=== PATIENT | female | born 1990 | race Caucasian/White ===

== ENCOUNTER 2016-11-23 23:45 | Emergency (ER) | payer BC, OTHER ==
[2016-11-23 23:53] VITALS: RESP 16
--- NOTE | 2016-11-24 00:26 | EDPHY ---
HPI/HX/ROS/PE/MDM Narrative: Chief complaint: Chest pain and sore throat, pain with swallowing HPI: 26-year-old woman with a history of Celine-Danlos syndrome, pneumothorax once and pneumomediastinum x5 in the past. Patient is presenting with onset of 5/10 chest pain with some sore throat at 5 o'clock this afternoon. This feels similar to her prior episodes of pneumomediastinum. Has not had any short shortness of breath. No fevers or chills. No cough. Did have some vigorous laughing last night for a short time. Has not had any other trauma. No nausea or vomiting. Last pneumomediastinum was about 2 and half years ago. She did have spontaneous pneumothorax about a year ago. ROS: 10 point Review of Systems is negative except as noted in the HPI. Physical exam: Gen: Awake, Alert, No Distress HEENT: Nose: no rhinorrhea Eyes: PERRLA, EOMI Mouth: Moist mucosa Neck: Supple, no JVD Chest: nontender, lungs clear to auscultation Heart: S1, S2 normal, no murmur Abd: Soft, non-tender, no guarding Back: no CVA tenderness, no midline tenderness Ext: no edema, non-tender Skin: no rash Neuro: CN II-XII intact, Sensation grossly intact, Strength 5/5 in bilateral upper and lower extremities ED Course: CXR: negative. No findings suggestive of pneumothorax or pneumomediastinum per my interpretation. Course: Pt unchanged. Declining pain medications. She would like to go home. I have advised she follow-up with her encephalographer this week. She is asking if she can fly this thursday. I have advised that she not fly until cleared by her encephalographer. I have also given her a referral to a PCP. She will return immediately for increasing shortness of breath, fever, chest pain, cough or other concerns. General Time Seen by Provider: 11/24/16 00:11 Initial Vital Signs: Initial Vital Signs Temperature (C) 36.9 C 11/23/16 23:48 Heart Rate 86 11/23/16 23:48 Respiratory Rate 16 11/23/16 23:48 Blood Pressure 116/76 11/23/16 23:48 O2 Sat (%) 97 11/23/16 23:48 O2 Delivery Mode Room Air Allergies/Adverse Reactions: buckwheat [Buckwheat] Allergy (Verified 11/23/16 23:54) ciprofloxacin [From Cipro] Allergy (Verified 11/23/16 23:54) ciprofloxacin HCl [From Cipro] Allergy (Verified 11/23/16 23:54) mupirocin [From Bactroban] Allergy (Verified 11/23/16 23:54) mupirocin calcium [From Bactroban] Allergy (Verified 11/23/16 23:54) oxycodone HCl [From Percocet] Allergy (Verified 11/23/16 23:54) peanut Allergy (Verified 11/23/16 23:54) soy Allergy (Verified 11/23/16 23:54) tree nut [Tree Nut] Allergy (Verified 11/23/16 23:54) avacado Allergy (Uncoded 03/18/16 13:33) somers peppers Allergy (Uncoded 03/18/16 13:33) fruit Allergy (Uncoded 03/18/16 13:33) lettuce Allergy (Uncoded 03/18/16 13:33) mustard Allergy (Uncoded 03/18/16 13:33) rice Allergy (Uncoded 03/18/16 13:33) Home Medications: Medication Instructions Recorded Dextroamphetamine/Amphetamine 10 mg PO DAILY PRN 11/13/15 [Adderall Xr 10 mg Capsule] Docusate Sodium [Colace 100 MG (*)] 100 mg PO BID #20 cap 11/15/15 Ibuprofen [Motrin (*)] 600 mg PO QID #20 tab 11/15/15 EPINEPHRINE [EPIPEN] 0.3 mg IM ONCE #2 syr 03/18/16 EPINEPHRINE [EPIPEN] 0.3 mg IM ONCE #2 syr 09/10/16 Departure - Departure Disposition: Home, Routine, Self-Care Clinical Impression: Chest pain Condition: Good Instructions: Chest Pain (ED) Additional Instructions: Return immediately for increasing shortness of breath, fever, chest pain, cough or other concerns. Do not fly until cleared by your PCP or Process Control Operator. Referrals: NONE *PRIMARY CARE P,. [Primary Care Provider] - As per Instructions Marcia Carpio DO [Doctor of Osteopathy] - As per Instructions
[2016-11-24 02:27] VITALS: BP 103/70; PULSE 64; TEMP 97.9; O2SAT 96
--- NOTE | 2016-11-24 08:38 | DX ---
PA and Lateral Chest November 24, 2016 0045 hours Indication: Chest pain. Personal history of left pneumothorax. Findings: The lungs are well aerated and clear. No pneumothorax, consolidation, or effusion. Heart si ze normal. Impression: Normal. No pneumothorax or explanation for pain.
== END 2016-11-24 02:26 | disposition home or self-care (01) ==
DX: R07.9 Chest pain, unspecified (principal); Z91.010 Allergy to peanuts

== ENCOUNTER 2016-12-17 19:05 | Emergency (ER) | payer BC ==
--- NOTE | 2016-12-17 19:24 | EDPHY ---
H & P HPI/ROS: CHIEF COMPLAINT: Fever, diarrhea, nausea. HISTORY OF PRESENT ILLNESS: The patient is a 26-year-old female who presents with fever and nausea, since Eric night (48 hours). Her illness began as crampy abdominal pain and diarrhea. She felt better yesterday and had no diarrhea but was still nauseated. Today she noticed a fever when she took her temperature. She describes having pain in her legs but denies myalgia. She admits mild right ear pain. She denies sore throat, rhinorrhea, cough, urinary symptoms. She was afebrile on presentation to the emergency department. She did not get a flu shot this year. REVIEW OF SYSTEMS: A complete 10-point review of systems was performed and is negative except for those items mentioned in the HPI. Past Medical/Surgical History: Cerebellar JPA, Celine-Danlos syndrome, ADHD, migraines, pneumomediastinum, hip surgery, shoulder surgery, ankle surgery. Social History: Nonsmoker. Smoking Status: Never smoked Physical Exam: General Appearance: Alert, no distress Eyes: Pupils equal and round, no conjunctival pallor or injection ENT, Mouth: Mucous membranes moist Neck: Normal inspection Respiratory: Lungs are clear to auscultation Cardiovascular: Regular rate and rhythm Gastrointestinal: Mild diffuse tenderness. Abdomen is soft. Neurological: A&O, nonfocal, normal gait Skin: Warm and dry, no rash Extremities: Nontender, no pedal edema Psychiatric: Mood and affect normal Constitutional: Initial Vital Signs Temperature (C) 37.2 C 12/17/16 19:10 Heart Rate 103 H 12/17/16 19:10 Respiratory Rate 16 12/17/16 19:10 Blood Pressure 112/73 12/17/16 19:10 O2 Sat (%) 99 12/17/16 19:10 O2 Delivery Mode Room Air Allergies/Adverse Reactions: buckwheat [Buckwheat] Allergy (Verified 11/23/16 23:54) ciprofloxacin [From Cipro] Allergy (Verified 11/23/16 23:54) ciprofloxacin HCl [From Cipro] Allergy (Verified 11/23/16 23:54) mupirocin [From Bactroban] Allergy (Verified 11/23/16 23:54) mupirocin calcium [From Bactroban] Allergy (Verified 11/23/16 23:54) oxycodone HCl [From Percocet] Allergy (Verified 11/23/16 23:54) peanut Allergy (Verified 11/23/16 23:54) soy Allergy (Verified 11/23/16 23:54) tree nut [Tree Nut] Allergy (Verified 11/23/16 23:54) avacado Allergy (Uncoded 03/18/16 13:33) somers peppers Allergy (Uncoded 03/18/16 13:33) fruit Allergy (Uncoded 03/18/16 13:33) lettuce Allergy (Uncoded 03/18/16 13:33) mustard Allergy (Uncoded 03/18/16 13:33) rice Allergy (Uncoded 03/18/16 13:33) Home Medications: Medication Instructions Recorded EPINEPHRINE [EPIPEN] 0.3 mg IM ONCE #2 syr 09/10/16 Zofran 12/17/16 Medical Decision Making ED Course/Re-evaluation: Influenza swab sent. An IV was established. 1L IV saline administered for hydration along with 4mg IV Zofran for nausea. Flu swab returns negative. Dip urinalysis is negative for leukocytes. 2055: Reassessed patient. She is still nauseated. 10mg IV Reglan administered. Feels much better after Reglan, want to go home. Sx c/w viral syndrome. Abd remains soft, NT on d/c. Differential Diagnosis: includes though not limited to influenza, UTI, pneumonia, surgical abdomen, SBO. - Data Points Laboratory Results: Laboratory Results 12/17/16 21:08 Medications Given: Discontinued Medications Acetaminophen (Tylenol) 1,000 mg PO EDNOW ONE Stop: 12/17/16 20:34 Last Admin: 12/17/16 20:45 Dose: 1,000 mg Sodium Chloride (Ns) 1,000 mls @ 0 mls/hr IV ONCE ONE PRN Reason: Wide Open Stop: 12/17/16 19:31 Last Admin: 12/17/16 19:35 Dose: 1,000 mls Metoclopramide HCl (Reglan Injection) 10 mg IVP EDNOW ONE Stop: 12/17/16 20:56 Last Admin: 12/17/16 21:11 Dose: 10 mg Ondansetron HCl (Zofran) 4 mg IVP EDNOW ONE Stop: 12/17/16 19:32 Last Admin: 12/17/16 19:37 Dose: 4 mg Ondansetron HCl (Zofran) 4 mg IVP EDNOW ONE Stop: 12/17/16 20:34 Last Admin: 12/17/16 20:45 Dose: 4 mg Ondansetron HCl (Zofran Odt 4 Mg Prepack#2) 1 btl TAKEHOME EDNOW ONE Stop: 12/17/16 20:45 Last Admin: 12/17/16 21:11 Dose: 1 btl Promethazine HCl (Phenergan 25 Mg Prepack #4) 1 btl TAKEHOME EDNOW ONE Stop: 12/17/16 21:03 Last Admin: 12/17/16 21:12 Dose: 1 btl Departure - Departure Disposition: Home, Routine, Self-Care Clinical Impression: Viral syndrome Condition: Good Instructions: Viral Syndrome (ED), Promethazine (By mouth), Ondansetron (By mouth) Additional Instructions: Adult Pain & Fever Control: We recommend Acetaminophen (Tylenol) and Ibuprofen (Motrin,Advil) for pain and fever control. When fever is high or pain severe, both drugs can be used at the same time, but at different intervals. Please note the time differences. Your dose is: Acetaminophen 650mg every 4 to 6 hours Ibuprofen 600mg every 6-8 hours with food. Note: do not take Acetaminophen with Hydrocodone (Vicodin, Lortab) or Oycodone (Percocet). These medications also contain Acetaminophen. No more than 3000mg of Acetaminophen should be taken in 24 hours (for an adult). Drink plenty of fluids and be sure to get rest. Follow up with your primary care provider if symptoms are not improving in the next 3-4 days. If you need a primary care provider you were given the telephone number of Dr. Rodriguez, outpatient medicine. Return to the emergency department for serious worsening of condition. Phenergan 1 tablet every 6 hours as needed for nausea. Zofran 1 tablet every 6 hours as needed for nausea. Referrals: Akila Rodriguez MD [Medical Doctor] - As per Instructions Report Scribed for: Yennifer Romeo Report Scribed by: Archie Lemon Date of Report: 12/17/16 Time of Report: 19:22 Physician Review and Approval Statement: 12/17/16 19:22 Portions of this note were transcribed by a biomedical field service engineer. I personally performed a history, physical exam, medical decision making, and confirmed accuracy of information the transcribed note.
[2016-12-17] MEDS ORDERED: NS 1,000 ML IV ONE (19:30)
[2016-12-17] MEDS ORDERED: ONDANSETRON 4 MG/2 ML VIAL IVP ONE ×2 (19:31→20:33)
[2016-12-17] MEDS ORDERED: ACETAMINOPHEN 500 MG TAB PO ONE (20:33)
[2016-12-17] MEDS ORDERED: ONDANSETRON 4MG PREPACK#2 BTL TAKEHOME ONE (20:44)
[2016-12-17] MEDS ORDERED: METOCLOPRAMIDE 10 MG/2 ML VIAL IVP ONE (20:55)
[2016-12-17] MEDS ORDERED: PROMETHAZINE 25 MG PREPACK #4 BTL TAKEHOME ONE (21:02)
[2016-12-17 21:16] LABS: % IMMATURE GRANULYOCYTES 0.4 % (0.0-1.1); ABSOLUTE IMMATURE GRANULOCYTES 0.02 10^3/uL (0.00-0.10); ADD DIFF? NO; ADD MORPH? NO; ADD SCAN? NO; ATYPICAL LYMPHOCYTE FLAG 10 (0-99); FRAGMENT RBC FLAG 0 (0-99); HEMATOCRIT 33.9 % (38.0-47.0); HEMOGLOBIN 11.8 g/dL (12.6-16.3); LEFT SHIFT FLG 10 (0-99); LIPEMIA HEMOLYSIS FLAG 90 (0-99); MEAN CELL HEMOGLOBIN 29.9 pg (27.9-34.1); MEAN CELL HEMOGLOBIN CONCENTR. 34.8 g/dL (32.4-36.7); MEAN PLATELET VOLUME 12.3 fL (8.7-11.7); PLATELET CLUMPS FLAG 0 (0-99); PLATELET COUNT 107 10^3/uL (150-400); RED BLOOD CELL COUNT 3.94 10^6/uL (4.18-5.33); RED CELL DISTRIBUTION WIDTH 12.3 % (11.5-15.2)
[2016-12-17 21:46] VITALS: BP 105/53; PULSE 97; RESP 14; TEMP 100.2; O2SAT 96
== END 2016-12-17 21:49 | disposition home or self-care (01) ==
DX: B34.9 Viral infection, unspecified (principal); Z91.010 Allergy to peanuts
CPT/HCPCS: 96374; J2405; J2765

== ENCOUNTER → 2017-02-06 | Outpatient (CLI) | payer BC | LOC: FIMAGING 07:18 | PROVIDERS: ATTEND Internal Medicine Hematology & Oncology | DX: Z09 Encounter for follow-up examination after completed treatment for conditions other than malignant neoplasm (principal); Z86.2 Personal history of diseases of the blood and blood-forming organs and certain disorders involving the immune mechanism ==

== ENCOUNTER → 2017-04-23 | Outpatient (CLI) | payer BC ==
[~2017-04-23] MED LIST: GADOBUTROL 10 ML VIAL IVP ONE
== END ==
LOC: FIMAGING 19:34
PROVIDERS: ATTEND Family Medicine Sports Medicine
DX: S06.0X0D Concussion without loss of consciousness, subsequent encounter (principal); Z90.89 Acquired absence of other organs
CPT/HCPCS: A9585

== ENCOUNTER → 2017-05-04 | Outpatient (CLI) | payer BC ==
[~2017-05-04] MED LIST changes: -GADOBUTROL 10 ML VIAL IVP ONE; +IOPAMIDOL (ISOVUE-300) 100 ML BTL ONE
== END ==
LOC: FIMAGING 08:18
PROVIDERS: ATTEND Family Medicine
DX: R10.814 Left lower quadrant abdominal tenderness (principal)
CPT/HCPCS: 74177-PO; Q9967

== ENCOUNTER 2017-10-09 20:11 | Emergency (ER) | payer BC ==
[2017-10-09 20:30] VITALS: RESP 18; TEMP 98.4
--- NOTE | 2017-10-09 20:38 | EDPHY ---
H & P Stated Complaint: rlq pain nausea Source: Patient Exam Limitations: No limitations - Personal History LMP (Females 10-55): 8-14 Days Ago Current Tetanus/Diphtheria Vaccine: Yes Current Tetanus Diphtheria and Acellular Pertussis (TDAP): Yes Tetanus Vaccine Date: 2015 - Medical/Surgical History Hx Asthma: Yes Hx Chronic Respiratory Disease: No Hx Diabetes: No Hx Cardiac Disease: No Hx Renal Disease: No Hx Cirrhosis: No Hx Alcoholism: No Hx HIV/AIDS: No Hx Splenectomy or Spleen Trauma: No Other PMH: pmh- cerebllar JPA, celine-danlos syndrome (conn. tissue d/o), ADHD, allergies, migraines, postural orthostatic tachycardia, post concussion,. psh- brain tumor excised 2009, pnuemomedistienum x5, R hip surg, L shoulder surg x 3 , R ankle surg - Social History Smoking Status: Never smoked Time Seen by Provider: 10/09/17 20:37 HPI/ROS: HPI: This is a 27-year-old female presents with Chief Complaint: rlq pain nausea Location: Right lower quadrant Quality: Pain Duration: 3-5 hours Signs and Symptoms: no fever, + nausea, no vomiting, no hematemesis, no blood in stool, no abdominal bloating, no diarrhea, no back pain, no urinary symptoms , no indigestion, no chest pain, no shortness of breath Timing: Worsening Severity: Moderate Context: Patient was walking back from class this afternoon and developed the sudden onset of moderate right lower quadrant pain that was constant in nature and nonradiating. She then went to see her neurologist for postconcussion syndrome. During the appointment she noted to be nauseous. Since this afternoon the pain in the right lower quadrant has continued to worsen and now is 8/10. She denies any urinary symptoms, fever, vomiting, diarrhea. She has not had any recent antibiotic use. LMP 1-2 weeks ago and no history of ovarian cysts, fibroids, dyspareunia. She had a bowel movement yesterday that was normal per her. At 5:00 p.m. she ate a small snack size container of bagel chips, salami and cheese without difficulty. Seen by OBGYN last week. Reports last sexual intercourse was 1 year ago. Modifying Factors: None Comment: ROS: see HPI Constitutional: No fever, no chills, no weight loss Eyes: No blurred vision Respiratory: No shortness of breath, no cough Cardiovascular: No chest pain, no palpitations Gastrointestinal: + nausea, no vomiting, no diarrhea, no hematemesis, no blood in stool Genitourinary: No dysuria, no blood in urine Extremities: No myalgias, no edema Neurologic: No weakness, no numbness Skin: No rashes, no petechiae Hematologic: No bruising, no bleeding MEDICAL/SURGICAL/SOCIAL HISTORY: Medical/Surgical history: pmh- cerebellar JPA, Celine-Danlos syndrome (conn. tissue d/o), ADHD, allergies, migraines, postural orthostatic tachycardia, post concussion, psh- brain tumor excised 2010, pneumomediastinum x5, R hip surg, L shoulder surg x 3, R ankle surg Social history: College student CONSTITUTIONAL: Well-appearing adult white female, awake and alert, no obvious distress HEENT: Atraumatic and normocephalic, PERRL, EOMI. Tympanic membranes clear. Oropharynx clear, no exudate and moist pink mucosa. Airway patent. No lymphadenopathy. No meningismus. Cardiovascular: Normal S1/S2, regular rate, regular rhythm, without murmur rub or gallop. PULMONARY/CHEST: Symmetrical and nontender. Clear to auscultation bilaterally. Good air movement. No accessory muscle usage. ABDOMEN: Soft, nondistended, pinpoint RLQ moderate tenderness, negative Rovsing sign, negative psoas sign, negative obturator sign, no rebound, no guarding, no peritoneal signs, no masses or organomegaly. No CVAT. PELVIC: normal external genitalia, normal cervix, cervical os was closed, no cervical motion tenderness, no adnexal mass, no discharge, no bleeding. The exam was performed with a senior infrastructure engineer. EXTREMITIES: 2/2 pulses, strength 5/5, no deformities, no clubbing, no cyanosis or edema. NEUROLOGICAL: no focal neuro deficits. GCS 15. SKIN: Warm and dry, no erythema. no rash. Good capillary refill. (Paulino,Seema) Constitutional: Initial Vital Signs Temperature (C) 36.9 C 10/09/17 20:25 Heart Rate 94 10/09/17 20:25 Respiratory Rate 18 10/09/17 20:25 Blood Pressure 111/74 10/09/17 20:25 O2 Sat (%) 94 10/09/17 20:25 O2 Delivery Mode Room Air Allergies/Adverse Reactions: buckwheat [Buckwheat] Allergy (Verified 11/23/16 23:54) ciprofloxacin [From Cipro] Allergy (Verified 11/23/16 23:54) ciprofloxacin HCl [From Cipro] Allergy (Verified 11/23/16 23:54) mupirocin [From Bactroban] Allergy (Verified 11/23/16 23:54) mupirocin calcium [From Bactroban] Allergy (Verified 11/23/16 23:54) oxycodone HCl [From Percocet] Allergy (Verified 11/23/16 23:54) peanut Allergy (Verified 11/23/16 23:54) soy Allergy (Verified 11/23/16 23:54) tree nut [Tree Nut] Allergy (Verified 11/23/16 23:54) avacado Allergy (Uncoded 03/18/16 13:33) somers peppers Allergy (Uncoded 03/18/16 13:33) fruit Allergy (Uncoded 03/18/16 13:33) lettuce Allergy (Uncoded 03/18/16 13:33) mustard Allergy (Uncoded 03/18/16 13:33) rice Allergy (Uncoded 03/18/16 13:33) Home Medications: Medication Instructions Recorded EPINEPHRINE [EPIPEN] 0.3 mg IM ONCE #2 syr 09/10/16 Zofran 12/17/16 Dextroamphetamine/Amphetamine 10/09/17 [Adderall Xr 10 mg Capsule] Medical Decision Making ED Course/Re-evaluation: Labs, abdominal ultrasound, IV fluids, urinalysis, IV medications ordered Afebrile and no systemic signs. 2151: Labs reviewed and grossly unremarkable including no lactic acidosis. 2210: Called by Radiology who advised ultrasound shows equivocal appendicitis is measuring between 5-7 mm, containing small appendicoliths within the lumen. Patient is reluctant to obtain CT scan due to multiple imaging that she has had in the past. Discussed case with attending who went to examine patient. ED decision to consult surgery Dr. Cody. CT A/P scan ordered and shows no acute appendicitis. (Seema Bob) I have evaluated and participated in the management of this patient. My co- signature indicates that I have reviewed this chart and that I agree with the findings and the plan of care as documented. My personal history and physical findings include: This is a healthy 27-year-old female who had the onset of right lower quadrant pain while walking earlier today. The pain has persisted and worsened. It is a deep aching sensation. She has not had fever or vomiting. She denies diarrhea or constipation. No urinary symptoms. Last normal menses was less than 2 weeks ago. She states that she is not sexually active. She has not had vaginal discharge. On examination her abdomen is soft with moderate tenderness in the right lower quadrant. Lungs are clear. Heart is regular. I reviewed her laboratory studies and radiographic studies. (Shazia Tomas) Differential Diagnosis: Abdominal pain including but not limited to appendicitis, cholecystitis, gastritis and urinary tract infection. (Seema Bob) - Data Points Laboratory Results: Laboratory Results 10/09/17 20:40 10/09/17 20:40 Medications Given: Discontinued Medications Sodium Chloride (Ns) 1,000 mls @ 0 mls/hr IV EDNOW ONE; Wide Open PRN Reason: Protocol Stop: 10/09/17 20:45 Last Admin: 10/09/17 20:49 Dose: 1,000 mls Sodium Chloride (Ns) 1,000 mls @ 200 mls/hr IV CONT JAMSHID Stop: 04/07/18 23:29 Last Admin: 10/09/17 23:17 Dose: 1,000 mls Morphine Sulfate (Morphine) 4 mg IVP EDNOW ONE Stop: 10/09/17 20:51 Last Admin: 10/09/17 20:58 Dose: 4 mg Departure - Departure Disposition: Home, Routine, Self-Care Clinical Impression: Right lower quadrant abdominal pain Condition: Good Instructions: Muscle Strain (ED) Additional Instructions: Please return to the emergency room immediately if you have a fever, increased abdominal pain, nausea, vomiting. Referrals: Magdalena Acosta MD [Primary Care Provider] - As per Instructions
[2017-10-09] MEDS ORDERED: NS 1,000 ML IV ONE (20:44)
[2017-10-09 20:57] LABS: % IMMATURE GRANULYOCYTES 0.3 % (0.0-1.1); ABSOLUTE IMMATURE GRANULOCYTES 0.02 10^3/uL (0.00-0.10); ADD DIFF? NO; ADD MORPH? NO; ADD SCAN? NO; ATYPICAL LYMPHOCYTE FLAG 70 (0-99); FRAGMENT RBC FLAG 0 (0-99); HEMATOCRIT 35.7 % (38.0-47.0); HEMOGLOBIN 12.1 g/dL (12.6-16.3); LEFT SHIFT FLG 0 (0-99); LIPEMIA HEMOLYSIS FLAG 90 (0-99); MEAN CELL HEMOGLOBIN 28.8 pg (27.9-34.1); MEAN CELL HEMOGLOBIN CONCENTR. 33.9 g/dL (32.4-36.7); MEAN PLATELET VOLUME 12.1 fL (8.7-11.7); PLATELET CLUMPS FLAG 0 (0-99); PLATELET COUNT 188 10^3/uL (150-400); RED CELL DISTRIBUTION WIDTH 13.3 % (11.5-15.2)
[2017-10-09 21:10] LABS: ALANINE AMINOTRANSFERASE 31 IU/L (9-52); ALBUMIN 4.6 g/dL (3.5-5.0); ALKALINE PHOSPHATASE 48 IU/L (38-126); ANION GAP 11 mEq/L (8-16); ASPARTATE AMINOTRANSFERASE 22 IU/L (14-46); BILIRUBIN,TOTAL 0.5 mg/dL (0.1-1.4); BILIRUBIN-CONJUGATED 0.1 mg/dL (0.0-0.5); BILIRUBIN-UNCONJUGATED 0.4 mg/dL (0.0-1.1); CALCIUM 9.5 mg/dL (8.5-10.4); CARBON DIOXIDE 20 mEq/l (22-31); CHLORIDE 108 mEq/L (97-110); CREATININE 0.7 mg/dL (0.6-1.0); GLOMERULAR FILTRATION RATE > 60; GLUCOSE 88 mg/dL (70-100); POTASSIUM 4.1 mEq/L (3.5-5.2); SODIUM 139 mEq/L (134-144); TOTAL PROTEIN 7.2 g/dL (6.3-8.2)
[2017-10-09 22:20] LABS: COLOR YELLOW; LEUKOCYTE ESTERASE,URINE NEGATIVE (NEGATIVE); NITRITE,URINE NEGATIVE (NEGATIVE)
[2017-10-09] MEDS ORDERED: IOPAMIDOL (ISOVUE-300) 100 ML BTL ONE (23:15)
[2017-10-09] MEDS ORDERED: NS 1,000 ML IV SCH ×2 (23:15→23:30)
--- NOTE | 2017-10-10 00:08 | PDCONSULT ---
[facility] Note: #[id number] Surgical consult dictated S MD Escobar, FACS
--- NOTE | 2017-10-10 00:45 | GCON ---
[f rep st] CONSULTATION DATE OF CONSULTATION: 10/09/2017 CHIEF COMPLAINT: Abdominal pain. HISTORY OF PRESENT ILLNESS: The patient is a 27-year-old female who developed nausea at about noon today. Subsequently, she developed right lower quadrant pain and pain continued to worsen throughout the day and afternoon. She continued to experience nausea. She came to the emergency room where she was seen by Seema EGAN, who obtained an abdominal ultrasound and surgical consultation was requested. The patient reports the pain to be located in the right lower quadrant without radiation and has remained there throughout the day. She has had no emesis. No diarrhea or constipation. Last menstrual period was 1 week prior. PAST MEDICAL HISTORY: Significant for Celine-Danlos syndrome, prior spontaneous pneumothorax requiring chest tube decompression, multiple presentations with pneumomediastinum. She has had multiple hip and shoulder surgeries as well as right ankle surgery and she had a cerebellar tumor excised in 2009. She has history of ADHD, postural orthostatic tachycardia, migraines, and approximately 2 months ago was diagnosed with mononucleosis. History of concussion. Three years ago patient had a ruptured ovarian cyst diagnosed by ultrasound. CURRENT MEDICATIONS: Include Adderall XR 10 mg q. day. She uses Zofran as needed for nausea orally and carries an EpiPen. ALLERGIES: Buckwheat, peanuts, soy, tree nuts, avocado, somers pepper, fruit, lettuce, mustard, rice, oxycodone, mupirocin, ciprofloxacin. SOCIAL HISTORY: She is a nonsmoker. Denies significant alcohol use. Rarely smokes pot. Patient is a student at studying chemistry. She is originally from the [place], [place] area. FAMILY HISTORY: No other family members have tested positive though she has a cousin who may have Celine-Danlos syndrome and is in the process of evaluation. REVIEW OF SYSTEMS: The patient denies any chest pain, shortness of breath, current headache, visual disturbances. She has had no recent trauma to the torso. The patient has never been . Has not been sexually active for over a year. PHYSICAL EXAMINATION: GENERAL: Reveals a slender young woman who appears in no acute distress. VITAL SIGNS: Blood pressure is 111/74, heart rate is 94, respiratory rate is 18, O2 saturation is 94, temperature is 36.9. HEENT: There is no scleral icterus. No cervical adenopathy. Trachea is midline. There is no jugular venous distention. LUNGS: Clear to auscultation. HEART: Regular in rate and rhythm without murmurs. There is no Bandar's crunch. ABDOMEN: Scaphoid, soft with normoactive bowel sounds. There is no focal tenderness to percussion. There is mild tenderness to deep palpation in the right lower quadrant with a positive squish sign. There is negative Rovsing's sign. There is no palpable mass or hernia. PELVIC: Not repeated. EXTREMITIES : Warm and dry without edema. RECTAL: Not performed. LABORATORY STUDIES: WBC is 6.0, hemoglobin 12, hematocrit 35.7, platelets are 188,000. Sodium 139, potassium 4.1, chloride 108, BUN 14, creatinine 0.7, glucose is 88. Liver function tests are entirely within normal limits. Beta hCG is negative. The patient's ultrasound was reviewed and showed a possible noncompressible structure in the right lower quadrant that was felt to contain an appendicolith. This is an oblong-shaped structure without shadowing associated with the appendicolith and did not appear typical for an inflamed appendix. Subsequent CT of the abdomen with IV contrast showed a 6 mm appendix without appendicolith and without periappendiceal fluid or fat stranding in the mesentery. There was no fluid in the pelvis either. IMPRESSION: Abdominal pain of unclear etiology/unlikely due to appendicitis RECOMMENDATIONS: Recommended a trial of diet. The patient is comfortable returning home. Will return should her symptoms worsen and/or if she starts to develop vomiting and is unable to remain hydrated at home, would recommend admission for further workup and evaluation and intravenous hydration. /[id number]/MODL MTDD
[2017-10-10 01:02] VITALS: BP 114/54; PULSE 80; O2SAT 98
== END 2017-10-10 00:59 | disposition home or self-care (01) ==
DX: R10.31 Right lower quadrant pain (principal); J45.909 Unspecified asthma, uncomplicated; E86.9 Volume depletion, unspecified; Z91.010 Allergy to peanuts
CPT/HCPCS: 96374; Q9967

== ENCOUNTER → 2017-11-27 | Outpatient (CLI) | payer BC ==
--- NOTE | 2017-11-27 22:00 | CPEEG ---
[f rep st] ELECTROENCEPHALOGRAM DATE OF STUDY: 11/27/2017 DATE OF STUDY: 11/27/2017 INTERPRETATION: Normal EEG during wakefulness and sleep. There were no potentially epileptogenic ab normalities present during the recording. REPORT: This EEG contains 10 Hz alpha activity to the posterior head regions. The background activi ty was normal and symmetric. There was no abnormal activation at rest, during photic stimulation or hyperventilation. The patient became drowsy and fell asleep during the study. There was no abnormal activation during drowsiness, sleep, or during times of arousal. /[id number]/MODL
== END ==
LOC: FCPNEURO 07:36
PROVIDERS: ATTEND Psychiatry & Neurology Neurology
DX: R40.4 Transient alteration of awareness (principal)

== ENCOUNTER → 2018-01-28 | Outpatient (CLI) | payer BC ==
[~2018-01-28] MED LIST changes: +GADOBUTROL 10 ML VIAL IVP ONE; -IOPAMIDOL (ISOVUE-300) 100 ML BTL ONE
== END ==
LOC: FIMAGING 06:56
DX: D16.21 Benign neoplasm of long bones of right lower limb (principal); M25.452 Effusion, left hip
CPT/HCPCS: A9585

== ENCOUNTER → 2018-01-29 | Outpatient (CLI) | payer BC | LOC: FIMAGING 16:03 | DX: M25.551 Pain in right hip (principal) ==

== ENCOUNTER 2018-03-10 22:11 | Emergency (ER) | payer BC, MEDICAID ==
--- NOTE | 2018-03-10 22:19 | EDPHY ---
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 Denies any trouble breathing, denies trouble swallowing. States that she became concerned about this and decided come the emergency room she did not administer any home medications she does carry an epinephrine pen for anaphylaxis but did not use it. She arrives to the emergency room hemodynamically stable no acute distress she has no rash. She has no stridor no drooling no trouble breathing and appears otherwise well. 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 [employer] student. Family History: Noncontributory ROS REVIEW OF SYSTEMS: A comprehensive 10 point review of systems is otherwise negative aside from elements mentioned in the history of present illness. Exam Constitutional appears well nontoxic no acute distress vital signs stable triage nursing summary reviewed, vital signs reviewed, awake/alert. Eyes normal conjunctivae and sclera, EOMI, PERRLA. HENT oropharynx uvula midline, no soft palate or hard palate swelling, tongue appears to be normal in size to me, no sublingual swelling, no stridor, no drooling normal inspection, atraumatic, moist mucus membranes, no epistaxis, neck supple/ no meningismus, no raccoon eyes. Respiratory clear to auscultation bilaterally, normal breath sounds, no respiratory distress, no wheezing. Cardiovascular rate normal, regular rhythm, no murmur, no edema, distal pulses normal. Gastrointestinal soft, non-tender, no rebound, no guarding, normal bowel sounds, no distension, no pulsatile mass. Genitourinary no CVA tenderness. Musculoskeletal no midline vertebral tenderness, full range of motion, no calf swelling, no tenderness of extremities, no meningismus, good pulses, neurovascularly intact. Skin pink, warm, & dry, no rash, skin atraumatic. Neurologic awake, alert and oriented x 3, AAOx3, moves all 4 extremities equally, motor intact, sensory intact, CN II-XII intact, normal cerebellar, normal vision, normal speech. Psychiatric normal mood/affect. Heme/Lymph/Immune no lymphadenopathy. Differential Diagnosis: Includes but is not limited to in a particular order allergic reaction, severe allergic reaction, anaphylaxis, angioedema Medical Decision Making: Plan for this patient IV establishment blood draw, IV Solu-Medrol, IV Pepcid, IV Benadryl. I do not feel the patient needs epinephrine at this time. Will continue to monitor closely. Prolonged period of observation in the emergency room. If she progresses will give epinephrine. Re-evaluation: 2334: Patient re-evaluated this time resting comfortably. No further progression of reaction. Tongue and oropharynx remained stable. 0155AM: Patient re-evaluated this time she has been here for 4 hr and has not had any progression of allergic reaction. Patient resting comfortably. I did reexamine her there is no further swelling of her airway. She feels comfortable going home. Prescription provided for prednisone, Benadryl, Pepcid for the next 3 days. She should follow up with her green feed attendant. Additionally she understands return if she has any further progression of symptoms includes trouble swallowing, trouble breathing, airway problems or worsening swelling or perceived swelling. She understands and is comfortable this plan. Source: Patient - Personal History LMP (Females 10-55): 15-21 Days Ago Current Tetanus/Diphtheria Vaccine: Yes Tetanus Vaccine Date: 2015 - Medical/Surgical History Hx Asthma: Yes Hx Chronic Respiratory Disease: No Hx Diabetes: No Hx Cardiac Disease: No Hx Renal Disease: No Hx Cirrhosis: No Hx Alcoholism: No Hx HIV/AIDS: No Hx Splenectomy or Spleen Trauma: No Other PMH: pmh- cerebllar JPA, lina-danlos syndrome (conn. tissue d/o), ADHD, allergies, migraines, postural orthostatic tachycardia, post concussion,. psh- brain tumor excised 2009, pnuemomedistienum x5, R hip surg, L shoulder surg x 3 , R ankle surg. ?HEREDITARY ANGIOEDEMA, C1 INHIBITOR DEFICIENCY - Social History Smoking Status: Never smoked Constitutional: Initial Vital Signs Heart Rate 88 03/10/18 22:13 Respiratory Rate 18 03/10/18 22:13 Blood Pressure 123/82 H 03/10/18 22:13 O2 Sat (%) 99 03/10/18 22:13 O2 Delivery Mode Room Air Allergies/Adverse Reactions: buckwheat [Buckwheat] Allergy (Verified 11/23/16 23:54) ciprofloxacin [From Cipro] Allergy (Verified 11/23/16 23:54) ciprofloxacin HCl [From Cipro] Allergy (Verified 11/23/16 23:54) mupirocin [From Bactroban] Allergy (Verified 11/23/16 23:54) mupirocin calcium [From Bactroban] Allergy (Verified 11/23/16 23:54) oxycodone HCl [From Percocet] Allergy (Verified 11/23/16 23:54) peanut Allergy (Verified 11/23/16 23:54) soy Allergy (Verified 11/23/16 23:54) tree nut [Tree Nut] Allergy (Verified 11/23/16 23:54) avacado Allergy (Uncoded 03/18/16 13:33) somers peppers Allergy (Uncoded 03/18/16 13:33) fruit Allergy (Uncoded 03/18/16 13:33) lettuce Allergy (Uncoded 03/18/16 13:33) mustard Allergy (Uncoded 03/18/16 13:33) rice Allergy (Uncoded 03/18/16 13:33) Home Medications: Medication Instructions Recorded EPINEPHRINE [EPIPEN] 0.3 mg IM ONCE #2 syr 09/10/16 Zofran 12/17/16 Dextroamphetamine/Amphetamine 10/09/17 [Adderall Xr 10 mg Capsule] Zyrtec 03/10/18 Famotidine [Pepcid 20 MG (*)] 20 mg PO BID #6 tab 03/11/18 diphenhydrAMINE [Benadryl 25 MG 25 mg PO BID #6 tab 03/11/18 (*)] predniSONE 60 mg PO DAILY #9 tab 03/11/18 Medical Decision Making - Data Points Laboratory Results: Laboratory Results 03/10/18 22:25 03/10/18 22:25 03/10/18 03/10/18 22:25 22:25 WBC 5.73 10^3/uL 10^3/uL (3.80-9.50) RBC 4.77 10^6/uL 10^6/uL (4.18-5.33) Hgb 14.0 g/dL g/dL (12.6-16.3) Hct 41.9 % % (38.0-47.0) MCV 87.8 fL fL (81.5-99.8) MCH 29.4 pg pg (27.9-34.1) MCHC 33.4 g/dL g/dL (32.4-36.7) RDW 14.2 % % (11.5-15.2) Plt Count 140 10^3/uL L 10^3/uL (150-400) MPV 12.6 fL H fL (8.7-11.7) Neut % (Auto) 51.0 % % (39.3-74.2) Lymph % (Auto) 39.4 % % (15.0-45.0) [place] % (Auto) 7.2 % % (4.5-13.0) Eos % (Auto) 1.7 % % (0.6-7.6) Baso % (Auto) 0.5 % % (0.3-1.7) Nucleat RBC Rel Count 0.0 % % (0.0-0.2) Absolute Neuts (auto) 2.92 10^3/uL 10^3/uL (1.70-6.50) Absolute Lymphs (auto) 2.26 10^3/uL 10^3/uL (1.00-3.00) Absolute Monos (auto) 0.41 10^3/uL 10^3/uL (0.30-0.80) Absolute Eos (auto) 0.10 10^3/uL 10^3/uL (0.03-0.40) Absolute Basos (auto) 0.03 10^3/uL 10^3/uL (0.02-0.10) Absolute Nucleated RBC 0.00 10^3/uL 10^3/uL (0-0.01) Immature Gran % 0.2 % % (0.0-1.1) Immature Gran # 0.01 10^3/uL 10^3/uL (0.00-0.10) Sodium 140 mEq/L mEq/L (135-145) Potassium 3.9 mEq/L mEq/L (3.5-5.2) Chloride 105 mEq/L mEq/L (97-110) Carbon Dioxide 23 mEq/l mEq/l (22-31) Anion Gap 12 mEq/L mEq/L (8-16) BUN 17 mg/dL mg/dL (7-23) Creatinine 0.7 mg/dL mg/dL (0.6-1.0) Estimated GFR > 60 Glucose 93 mg/dL mg/dL (70-100) Calcium 9.7 mg/dL mg/dL (8.5-10.4) Medications Given: Discontinued Medications Diphenhydramine HCl (Benadryl Injection) 50 mg IVP EDNOW ONE Stop: 03/10/18 22:27 Last Admin: 03/10/18 22:35 Dose: 50 mg Famotidine (Pepcid) 20 mg IVP EDNOW ONE Stop: 03/10/18 22:27 Last Admin: 03/10/18 22:35 Dose: 20 mg Sodium Chloride (Ns) 1,000 mls @ 0 mls/hr IV EDNOW ONE; Wide Open PRN Reason: Protocol Stop: 03/10/18 22:27 Last Admin: 03/10/18 22:35 Dose: 1,000 mls Methylprednisolone Sodium Succinate (Solu-Medrol) 125 mg IVP EDNOW ONE Stop: 03/10/18 22:27 Last Admin: 03/10/18 22:35 Dose: 125 mg Departure - Departure Disposition: Home, Routine, Self-Care Clinical Impression: Allergic reaction Qualifiers: Encounter type: initial encounter Qualified Code(s): T78.40XA - Allergy, unspecified, initial encounter Instructions: Anaphylaxis (ED) Additional Instructions: 1. Return immediately to the emergency room if you have worsening swelling trouble breathing or perceive the reaction is getting worse. 2. Follow up with her green feed attendant 3. Prednisone, Benadryl, Pepcid for the next 3 days. Return if worse. Referrals: Magdalena Acosta MD [Primary Care Provider] - As per Instructions Prescriptions: diphenhydrAMINE [Benadryl 25 MG (*)] 25 mg PO BID #6 tab Famotidine [Pepcid 20 MG (*)] 20 mg PO BID #6 tab predniSONE 60 mg PO DAILY #9 tab
[2018-03-10] MEDS ORDERED: methylPREDNISolone SOD SUCC 125 MG/2 ML VIAL IVP ONE (22:26)
[2018-03-10] MEDS ORDERED: FAMOTIDINE 20 MG/2 ML SDV IVP ONE (22:26)
[2018-03-10] MEDS ORDERED: NS 1,000 ML IV ONE (22:26)
[2018-03-10 22:34] LABS: PLATELET COUNT 140 10^3/uL (150-400)
[2018-03-11 01:48] VITALS: BP 102/54
== END 2018-03-11 02:12 | disposition home or self-care (01) ==
DX: T78.40XA Allergy, unspecified, initial encounter (principal); E86.9 Volume depletion, unspecified; Z91.010 Allergy to peanuts
CPT/HCPCS: 96374; J1200; J2930

== ENCOUNTER → 2018-09-16 | Outpatient (CLI) | payer MEDICAID | LOC: BMCIMAGING 10:04 | PROVIDERS: ATTEND Family Medicine Sports Medicine | DX: Z13.820 Encounter for screening for osteoporosis (principal); F50.9 Eating disorder, unspecified; Z87.312 Personal history of (healed) stress fracture ==

== ENCOUNTER 2019-04-17 20:26 | Emergency (ER) | payer MEDICAID ==
[2019-04-17] MEDS ORDERED: NS 1,000 ML IV ONE (20:44)
[2019-04-17] MEDS ORDERED: PROMETHAZINE HCL 25 MG/ML INJ IVP ONE (20:44)
[2019-04-17] MEDS ORDERED: LIDOCAINE 2% VISCOUS 15 ML UDCUP PO ONE (20:44)
[2019-04-17] MEDS ORDERED: MAG HYDROX/AL HYDROX/SIMETH 30 ML UDCUP PO ONE (20:44)
[2019-04-17] MEDS ORDERED: HYOSCYAMINE SULFATE 0.125 MG TAB PO ONE (20:44)
--- NOTE | 2019-04-17 20:46 | EDPHY ---
H & P Stated Complaint: RUQ pain x3 days, worse with food, nausea Time Seen by Provider: 04/17/19 20:44 HPI/ROS: HPI: This is a 29-year-old female who presents with Chief Complaint: RUQ pain x3 days, worse with food, nausea Location: Right upper quadrant Quality: Pain Duration: 3 days Signs and Symptoms: no fever,+ nausea, no vomiting, no hematemesis, no blood in stool, no abdominal bloating, no diarrhea, no back pain, no urinary symptoms, no vaginal bleeding/discharge, no indigestion, no chest pain, no shortness of breath Timing: Worse with food Severity: Moderate Context: Patient is a student at [employer] presents with complaints of right upper quadrant pain x3 days that is worse with food and accompanied by nausea. Patient reports that she has multiple food allergies. No prior history of GERD or gastritis. Does not regularly use NSAIDs and does not drink alcohol regularly as well. Seen by [facility]ology of the [facility] as she was losing weight approximately 2 weeks ago and had an EGD performed that was essentially unremarkable per the patient. She has not noted any early satiety, abdominal bloating, fever, diarrhea. No recent foreign travel, recent antibiotic use, concern for food borne illness. Denies any urinary symptoms and politely declines urinalysis. Modifying Factors: None Comment: ROS: A comprehensive 10 system review of systems is otherwise negative aside from elements mentioned in the history of present illness. MEDICAL/SURGICAL/SOCIAL HISTORY: Medical history: cerebellar JPA, lina-danlos syndrome (conn. tissue d/o), ADHD, allergies, migraines, postural orthostatic tachycardia, post concussion, ? HEREDITARY ANGIOEDEMA, C1 INHIBITOR DEFICIENCY. LMP 1-2 weeks ago. Surgical history: brain tumor excised 2010, pneumomediastinum x5, R hip surg, L shoulder surg x 3, R ankle surg Social history: Never smoked. Family history noncontributory. Student at [employer]. CONSTITUTIONAL: Extremely well-appearing polite adult white female, awake and alert, no obvious distress HEENT: Atraumatic and normocephalic, PERRL, EOMI. Nares patent; no rhinorrhea; no nasal mucosal edema. Tympanic membranes clear. Oropharynx clear, no exudate and moist pink mucosa. Airway patent. No lymphadenopathy. No meningismus. Cardiovascular: Normal S1/S2, regular rate, regular rhythm, without murmur rub or gallop. PULMONARY/CHEST: Symmetrical and nontender. Clear to auscultation bilaterally. Good air movement. No accessory muscle usage. ABDOMEN: Soft, nondistended, mild right upper quadrant tenderness to deep palpation, no rebound, no guarding, no peritoneal signs, no masses or organomegaly. No CVAT. EXTREMITIES: 2/2 pulses, strength 5/5, no deformities, no clubbing, no cyanosis or edema. NEUROLOGICAL: no focal neuro deficits. GCS 15. SKIN: Warm and dry, no erythema. no rash. Good capillary refill. Source: Patient Exam Limitations: No limitations ( ) - Personal History LMP (Females 10-55): 8-14 Days Ago Current Tetanus Diphtheria and Acellular Pertussis (TDAP): Yes Tetanus Vaccine Date: 2015 - Medical/Surgical History Hx Asthma: Yes Hx Chronic Respiratory Disease: No Hx Diabetes: No Hx Cardiac Disease: No Hx Renal Disease: No Hx Cirrhosis: No Hx Alcoholism: No Hx HIV/AIDS: No Hx Splenectomy or Spleen Trauma: No Other PMH: pmh- cerebllar JPA, lina-danlos syndrome (conn. tissue d/o), ADHD, allergies, migraines, postural orthostatic tachycardia, post concussion,. psh- brain tumor excised 2009, pnuemomedistienum x5, R hip surg, L shoulder surg x 3 , R ankle surg. ?HEREDITARY ANGIOEDEMA, C1 INHIBITOR DEFICIENCY - Social History Smoking Status: Never smoked Constitutional: Initial Vital Signs Heart Rate 86 04/17/19 20:28 Respiratory Rate 16 04/17/19 20:28 Blood Pressure 120/78 04/17/19 20:28 O2 Sat (%) 97 04/17/19 20:28 O2 Delivery Mode Room Air Allergies/Adverse Reactions: ciprofloxacin [From Cipro] Allergy (Verified 04/17/19 20:29) ciprofloxacin HCl [From Cipro] Allergy (Verified 04/17/19 20:29) mupirocin [From Bactroban] Allergy (Verified 04/17/19 20:29) mupirocin calcium [From Bactroban] Allergy (Verified 04/17/19 20:29) oxycodone HCl [From Percocet] Allergy (Verified 04/17/19 20:29) peanut Allergy (Verified 04/17/19 20:29) tree nut [Tree Nut] Allergy (Verified 04/17/19 20:29) avacado Allergy (Uncoded 03/18/16 13:33) somers peppers Allergy (Uncoded 03/18/16 13:33) fruit Allergy (Uncoded 03/18/16 13:33) lettuce Allergy (Uncoded 03/18/16 13:33) Home Medications: Medication Instructions Recorded EPINEPHRINE [EPIPEN] 0.3 mg IM ONCE #2 syr 09/10/16 Zofran 12/17/16 Dextroamphetamine/Amphetamine 10/09/17 [Adderall Xr 10 mg Capsule] Zyrtec 03/10/18 Famotidine [Pepcid 20 MG (*)] 20 mg PO BID #6 tab 03/11/18 diphenhydrAMINE [Benadryl 25 MG 25 mg PO BID #6 tab 03/11/18 (*)] predniSONE 60 mg PO DAILY #9 tab 03/11/18 Ondansetron Odt [Zofran Odt 4 mg 4 mg PO Q4 PRN #12 tab 04/17/19 (*)] Pantoprazole Sodium [Protonix 40mg 40 mg PO DAILY #7 tab 04/17/19 (*)] Medical Decision Making - Diagnostics Imaging Results: Imaging Impressions Abdomen Ultrasound 04/17/19 20:44 Impression: Normal right upper quadrant ultrasound. Findings discussed with Seema Bob PAC at 21:59 hour, 04/17/2019. ED Course/Re-evaluation: Vital signs reviewed and stable upon arrival. No systemic signs. IV access, laboratory studies, right upper quadrant ultrasound ordered Given 2 L normal saline, GI cocktail, IV Protonix, IV promethazine 12.5 mg with moderate pain relief Called by Dr. Betancourt that right upper quadrant ultrasound is unremarkable Laboratory studies reviewed. No signs of leukocytosis/anemia/platelet dysfunction/JAVI/elevated LFTs/electrolyte imbalance/pancreatitis/. Will discharge patient home with Zofran and Protonix along with gastroenterology referral Patient may benefit for repeat EGD verses HIDA scan This patient was seen under the supervision of my secondary supervising physician. I evaluated and cared for this patient independently. Differential Diagnosis: Abdominal pain including but not limited to appendicitis, cholecystitis, gastritis and urinary tract infection. - Data Points Laboratory Results: Laboratory Results 04/17/19 20:45 04/17/19 20:45 04/17/19 04/17/19 04/17/19 20:45 20:45 20:45 WBC 7.02 10^3/uL 10^3/uL (3.80-9.50) RBC 4.51 10^6/uL 10^6/uL (4.18-5.33) Hgb 13.7 g/dL g/dL (12.6-16.3) Hct 41.0 % % (38.0-47.0) MCV 90.9 fL fL (81.5-99.8) MCH 30.4 pg pg (27.9-34.1) MCHC 33.4 g/dL g/dL (32.4-36.7) RDW 12.3 % % (11.5-15.2) Plt Count 137 10^3/uL L 10^3/uL (150-400) MPV 12.1 fL H fL (8.7-11.7) Neut % (Auto) 59.9 % % (39.3-74.2) Lymph % (Auto) 31.5 % % (15.0-45.0) [place] % (Auto) 6.4 % % (4.5-13.0) Eos % (Auto) 1.7 % % (0.6-7.6) Baso % (Auto) 0.4 % % (0.3-1.7) Nucleat RBC Rel Count 0.0 % % (0.0-0.2) Absolute Neuts (auto) 4.20 10^3/uL 10^3/uL (1.70-6.50) Absolute Lymphs (auto) 2.21 10^3/uL 10^3/uL (1.00-3.00) Absolute Monos (auto) 0.45 10^3/uL 10^3/uL (0.30-0.80) Absolute Eos (auto) 0.12 10^3/uL 10^3/uL (0.03-0.40) Absolute Basos (auto) 0.03 10^3/uL 10^3/uL (0.02-0.10) Absolute Nucleated RBC 0.00 10^3/uL 10^3/uL (0-0.01) Immature Gran % 0.1 % % (0.0-1.1) Immature Gran # 0.01 10^3/uL 10^3/uL (0.00-0.10) Sodium 139 mEq/L mEq/L (135-145) Potassium 3.6 mEq/L mEq/L (3.5-5.2) Chloride 105 mEq/L mEq/L (97-110) Carbon Dioxide 23 mEq/l mEq/l (22-31) Anion Gap 11 mEq/L mEq/L (6-14) BUN 19 mg/dL mg/dL (7-23) Creatinine 0.6 mg/dL mg/dL (0.6-1.0) Estimated GFR > 60 Glucose 103 mg/dL H mg/dL (70-100) Calcium 9.1 mg/dL mg/dL (8.5-10.4) Total Bilirubin 0.4 mg/dL mg/dL (0.1-1.4) Conjugated Bilirubin 0.0 mg/dL mg/dL (0.0-0.5) Unconjugated Bilirubin 0.4 mg/dL mg/dL (0.0-1.1) AST 31 IU/L IU/L (14-46) ALT 21 IU/L IU/L (9-52) Alkaline Phosphatase 53 IU/L IU/L (38-126) Total Protein 7.0 g/dL g/dL (6.3-8.2) Albumin 4.6 g/dL g/dL (3.5-5.0) Lipase 74 IU/L IU/L (23-300) Beta HCG, Qual NEGATIVE Medications Given: Pantoprazole Sodium (Protonix) 40 mg IVP ONCE ONE Stop: 04/18/19 20:45 Last Admin: 04/17/19 21:24 Dose: 40 mg Discontinued Medications Al Hydroxide/Mg Hydroxide (Maalox Susp) 30 ml PO ONCE ONE Stop: 04/17/19 20:45 Last Admin: 04/17/19 21:09 Dose: 30 ml Hyoscyamine Sulfate (Levsin, Hyomax-Sl) 0.25 mg PO ONCE ONE Stop: 04/17/19 20:45 Last Admin: 04/17/19 21:09 Dose: 0.25 mg Sodium Chloride (Ns) 1,000 mls @ 0 mls/hr IV EDNOW ONE; Wide Open PRN Reason: Protocol Stop: 04/17/19 20:45 Last Admin: 04/17/19 21:09 Dose: 1,000 mls Lidocaine (Lidocaine 2% Viscous) 15 ml PO ONCE ONE Stop: 04/17/19 20:45 Last Admin: 04/17/19 21:09 Dose: 15 ml Promethazine HCl (Phenergan) 12.5 mg IVP EDNOW ONE Stop: 04/17/19 20:45 Last Admin: 04/17/19 21:10 Dose: 12.5 mg Departure - Departure Disposition: Home, Routine, Self-Care Clinical Impression: Postprandial RUQ pain Condition: Good Instructions: Gastroesophageal Reflux Disease (ED), Diet for Stomach Ulcers and Gastritis (ED), Biliary Dyskinesia (DC) Additional Instructions: Consume a minimum of 8-10 glasses of water or electrolyte fluid replacement drinks that include Gatorade, Powerade, Pedialyte. Eat a bland diet for the next 48 hours and then slowly advance as tolerated. Take Zofran 1 tab every 4 hours as needed for nausea, vomiting. Take Protonix every morning. Follow-up with Gastroenterology in the next 7-10 days. Return to the Emergency Room if symptoms do not resolve in the next 48-72 hours , you spike a fever > 102 F, or experience intractable abdominal pain/nausea/ vomiting. Referrals: Magdalena Acosta MD [Primary Care Provider] - As per Instructions Gastroenterology [facility] [Provider Group] - As per Instructions Stand Alone Forms: Work Excuse Prescriptions: Ondansetron Odt [Zofran Odt 4 mg (*)] 4 mg PO Q4 PRN #12 tab PRN Reason: Nausea/Vomiting, Use 1st Pantoprazole Sodium [Protonix 40mg (*)] 40 mg PO DAILY #7 tab
[2019-04-17 21:03] LABS: PLATELET COUNT 137 10^3/uL (150-400)
[2019-04-17] MEDS ORDERED: PANTOPRAZOLE SODIUM 40 MG VIAL ONE (21:20)
[2019-04-17] MEDS ORDERED: NS 50 ML BAG IV ONE (21:21)
[2019-04-17] MEDS: PANTOPRAZOLE SODIUM 40 MG VIAL IVP ONE (21:24)
[2019-04-17 22:51] VITALS: BP 99/61
== END 2019-04-17 22:50 | disposition home or self-care (01) ==
DX: R10.11 Right upper quadrant pain (principal)
CPT/HCPCS: 96374; J2550

== ENCOUNTER 2019-04-27 20:26 | Emergency (ER) | payer MEDICAID | END 2019-04-28 00:02 | disposition home or self-care (01) ==

== ENCOUNTER → 2019-04-29 | Outpatient (CLI) | payer MEDICAID | LOC: FIMAGING 13:35 ==

== ENCOUNTER 2019-05-02 04:48 | Emergency (ER) | payer MEDICAID | END 2019-05-02 08:04 | disposition home or self-care (01) ==

== ENCOUNTER → 2019-05-04 | Outpatient (CLI) | payer MEDICAID | LOC: FIMAGING 11:22 ==